=== PATIENT | female | born 1975 | race Caucasian/White ===

== ENCOUNTER 2018-07-02 05:38 | Day surgery (SDC) | payer BC ==
[~2018-07-02] VITALS: Ht 160 cm; Wt 131.5 kg
--- NOTE | ~2018-07-02 | O ---
[facility] [place] [address] OPERATIVE REPORT Name: SHANI ROMEO Room #: 150-7 [facility]#: [id number] Admission: 07/02/18 Attend Phys: Davion Teague MD Discharge: Date of : 77 Report #: [id number] THIS REPORT FOR: //name// CC: Deejay Teague DATE OF SERVICE: 07/02/2018 PREOPERATIVE DIAGNOSIS: Right peroneal tendon tendonitis. POSTOPERATIVE DIAGNOSIS: Right peroneal tendon tendonitis. PROCEDURE: Right peroneal tendon debridement. SURGEON: Davion Teague M.D. ROAD CUTTER: Caroline Davidson. ANESTHESIA: General. ESTIMATED BLOOD LOSS: Minimal. DRAINS: No drains. TOURNIQUET TIME: 30 minutes. DESCRIPTION OF PROCEDURE: The patient brought to the operating room where she was placed under general anesthesia. Once under adequate general anesthesia, her right lower extremity was prepped and draped in sterile manner. The extremity was elevated, exsanguinated, tourniquet placed 300 mmHg. A lateral incision approximately 6 cm in length was made overlying the peroneal tubercle. This was dissected down through the soft tissue to the peroneal tubercle, which was identified and subsequently the peroneus longus and brevis tendons were exposed incising the sheath overlying the tendons there. The peroneal tubercle itself was removed with a rongeur. The tendons noted significant constriction of the peroneus longus tendon; however, there were no tears identified. Similarly, the brevis tendon noted significant synovitis without a tear. Once the evaluation was complete, the tendons were freed from any surrounding constrictions. The wound was irrigated copiously and closed with 2-0 Vicryl in the subcutaneous tissues and rehana for the skin. The wounds were dressed with Xeroform, 4 x 4s, and sterile soft compressive dressing was placed. Tourniquet was let down at approximately 30 minutes. Toes were pink and warm with good [facility] [address] [place] [address] OPERATIVE REPORT Name: SHANI ROMEO Room #: 150-7 [facility] M.R.#: [id number] Admission: 07/02/18 Attend Phys: Davion Teague MD Discharge: Date of : 77 Report #: [id number] capillary refill. There were no complications from the procedure. The patient tolerated the procedure well and was taken to recovery room without incident. By: [id number] 1503 Davion Teague MD /nt
[~2018-07-02 05:38] MED LIST: ALLER-EASE180 MG PO; ASPIRIN325 PO; BENADRYL25 MG PO; CARDIZEM CD120 MG PO; CBD OIL PO; CLARINEX-D 121 EACH PO; CLARITIN10 MG PO; EPIPEN0.3 MG/0.1 IM; EPIPEN0.3 MG/0.3; IBUPROFEN 600600 M1 PO; IBUPROFEN 800800 MG PO; LORTAB 7.5/5001 TA3 PO; LOVENOX SQ; MATZIM LA240 MG PO; MEDROL DOSPAK21 TAB PO; NORCO 5-325 TA1 EACH PO; OSELB75 PO; PEPCID AC10 MG PO; PREDNISONE 5 MG5 M1 PO; PRILOSEC 10MG C10 M1 PO; PROAIR HFA8.5 GM IH; PROAIR HFA8.5 GM INH; PROTONIX40 M2 PO; SINGULAIR 10 MG10 M1 PO; SYMBICORT160 MCG/4. INH; SYNTHROID175 MCG PO; SYNTHROID50 MCG PO; ULTRAM 50MG TAB50 MG PO; UNICOMPLEX M TA1 TA1 PO; VITAMIN D 5050000 I1 PO; ZANTAC 150MG T150 MG PO; ZOFRAN ODT4 MG PO; [UNRECOGNIZED DRUG - OTHER] PO; [UNRECOGNIZED DRUG - OTHER] PO
[2018-07-02 14:04] VITALS: BP 132/71
[2018-07-02] MEDS ORDERED: PERCOCET 7.5-31 EACH PO (14:37)
[2018-07-02] MEDS ORDERED: LOVENOX40 MG/0.4 SUBQ (14:39)
[2018-07-02 15:27] VITALS: BP 132/71
== END 2018-07-02 15:50 | disposition home or self-care (01) ==
LOC: OR 05:38 → TBA 05:38 → OR 14:20
DX: M76.71 Peroneal tendinitis, right leg (principal); J45.909 Unspecified asthma, uncomplicated; Z87.19 Personal history of other diseases of the digestive system; Z98.890 Other specified postprocedural states; Z90.49 Acquired absence of other specified parts of digestive tract; Z90.710 Acquired absence of both cervix and uterus; Z98.51 Tubal ligation status; Z88.8 Allergy status to other drugs, medicaments and biological substances; Z79.899 Other long term (current) drug therapy; Z79.891 Long term (current) use of opiate analgesic; Z91.041 Radiographic dye allergy status
CPT/HCPCS: 50010; 50101; 50386; 51412; 56524; 57091; 57180; 62110; 62900; 64037; 70005

== ENCOUNTER 2018-12-17 05:19 | Day surgery (SDC) | payer BC ==
[~2018-12-17] VITALS: Ht 162.6 cm; Wt 131.5 kg
[~2018-12-17 05:19] MED LIST changes: +LOVENOX40 MG/0.4 SUBQ; +PERCOCET 7.5-31 EACH PO
[2018-12-17] MEDS ORDERED: PERCOCET 7.5-31 EACH PO (16:57)
--- NOTE | 2018-12-27 14:35 | O ---
[facility] [place] [address] OPERATIVE REPORT Name: SHANI ROMEO Rich Room #: DEP [facility]..#: [id number] Admission: 12/17/18 ������������������ Attend Phys: Davion Teague MD Discharge: 12/17/18 ������������������ Date of : 77 Report #: [id number] THIS REPORT FOR: //name// CC: Deejay Teague DATE OF SERVICE: 12/17/2018 PREOPERATIVE DIAGNOSIS: Right sural neuritis. POSTOPERATIVE DIAGNOSIS: Right sural neuritis. PROCEDURE: Right sural neurolysis with neurectomy. SURGEON: Davion Teague M.D. ANESTHESIA: General. ESTIMATED BLOOD LOSS: 5 mL. DRAINS: No drains. TOURNIQUET TIME: 30 minutes. DESCRIPTION OF PROCEDURE: The patient brought to the operating room where she was placed under general anesthesia. Once under adequate general anesthesia, her right lower extremity was prepped and draped in a sterile manner. The extremity was elevated, exsanguinated, tourniquet placed 300 mmHg. A lateral incision to the patient's previous scar was then made. This was extended proximally and distally. Proximal to the previous surgery, the sural nerve was identified. It was then subsequently followed down through the soft tissue where it did appear to then be scarred with a neuroma type appearance, fibrotic and gritty, adhered to the peroneal retinaculum. I was unable to really dissect this free of the retinaculum. Therefore, it was then subsequently excised using tenotomy scissors and followed proximally deep into the fat where it was incised and a sural neurectomy was complete. The wound was then irrigated copiously and closed with 2-0 Vicryl in subcutaneous tissues and rehana were used for the skin. The wound was dressed with Xeroform, 4 x 4s, and sterile soft compressive dressing was placed. Tourniquet was let down at approximately 30 minutes. Toes were pink and warm with good capillary refill. There were no complications from the procedure. The patient tolerated the procedure well and went to the recovery room without incident. ��������������������������������������������� <ELECTRONICALLY SIGNED> ���������������������������������������� By: Davion Teague MD ��������������������������������������������� 12/27/18 1435 1707 1731 Davion Teague MD /nt
== END 2018-12-17 18:48 | disposition home or self-care (01) ==
LOC: OR 05:19 → TBA 05:19 → OR 11:35
DX: G57.81 Other specified mononeuropathies of right lower limb (principal); J45.909 Unspecified asthma, uncomplicated; K21.9 Gastro-esophageal reflux disease without esophagitis; Z90.710 Acquired absence of both cervix and uterus; Z86.711 Personal history of pulmonary embolism; Z79.01 Long term (current) use of anticoagulants; Z87.19 Personal history of other diseases of the digestive system; Z98.890 Other specified postprocedural states; Z98.51 Tubal ligation status; Z90.49 Acquired absence of other specified parts of digestive tract; Z79.899 Other long term (current) drug therapy; Z88.8 Allergy status to other drugs, medicaments and biological substances; Z87.891 Personal history of nicotine dependence
CPT/HCPCS: 50010; 50101; 50386; 51412; 56524; 57091; 57181; 62110; 62900; 70005

== ENCOUNTER 2019-05-11 07:08 | Day surgery (SDC) | payer BC ==
[~2019-05-11] VITALS: Ht 160 cm; Wt 145.1 kg
--- NOTE | ~2019-05-11 | O ---
[facility] [place] [address] OPERATIVE REPORT Name: SHANI ROMEO Room #: 150-2 [facility].#: [id number] Admission: 05/11/19 Attend Phys: Davion Teague MD Discharge: Date of : 77 Report #: [id number] THIS REPORT FOR: //name// CC: Davion Teague [facility] DATE OF SERVICE: 05/11/2019 PREOPERATIVE DIAGNOSES: 1. Right ankle instability. 2. Right ankle synovitis. POSTOPERATIVE DIAGNOSES: 1. Right ankle instability. 2. Right ankle synovitis. PROCEDURES: 1. Right ankle arthroscopic debridement with synovectomy. 2. Right ankle Brostrom-Brito lateral ligament reconstruction with internal brace. SURGEON: Davion Teague MD PIN DRAFTING MACHINE TENDER: Caroline ____ ANESTHESIA: General. ESTIMATED BLOOD LOSS: Minimal. DRAINS: No drains. TOURNIQUET TIME: One hour. DESCRIPTION OF PROCEDURE: The patient was brought to the operating room where she was placed under general anesthesia. Once under adequate general anesthesia, her right lower extremity was prepped and draped in sterile manner. The extremity was elevated, exsanguinated, tourniquet placed 300 mmHg. The extremity had been placed into an arthroscopic thigh support prior to draping. A Guhl ankle distractor was then placed. An anteromedial and anterolateral arthroscopic portal was made in the usual fashion. Examination of the joint noted significant synovitis in syndesmotic region and synovectomy was performed there with the arthroscopic shaver. The remainder of the joint was clear. The wound was irrigated copiously and the extremity was removed from the arthroscopic thigh support. A longitudinal incision based along the anterolateral ankle was made and dissected down through the soft tissue to the inferior extensor retinaculum, which was identified and tagged for later use. [address] [address] OPERATIVE REPORT Name: SHANI ROMEO Room #: 150-2 [facility]#: [id number] Admission: 05/11/19 Attend Phys: Davion Teague MD Discharge: Date of : 77 Report #: [id number] The anterior talofibular ligament and calcaneofibular ligament were incised through the mid portions and repaired. Subsequently, a drill and tap for the internal brace was used at the footprint of the ATFL as well as at the distal fibula. The internal brace was then placed with the ankle held in neutral position. The ATFL and the CFL were then subsequently repaired in shortened position with 0 Ethibond suture. The wound was irrigated copiously and the inferior extensor retinaculum was advanced to the periosteum of the fibula with 0 Ethibond suture as well. Excellent repair was achieved in this manner. The wound was irrigated copiously and closed with 2-0 Vicryl in subcutaneous tissues and rehana for the skin. The wounds were dressed with Xeroform, 4 x 4s, and sterile soft compressive dressing with a short leg cast was placed. Tourniquet was let down at 1 hour. Toes were pink and warm with good capillary refill. There were no complications from the procedure. The patient tolerated the procedure well and went to recovery room without incident. By: [id number] [id number] Davion Teague MD /nt
[~2019-05-11 07:08] MED LIST changes: +ENOXAPARIN60 MG/0.1 SUBQ; +FLONASE 0.05%50 MCG NARES; +TOPROL XL25 MG PO; +VITAMIN D350000 UNIT PO; +[UNRECOGNIZED DRUG - CODE] TRANSDERM
[2019-05-11 08:01] VITALS: BP 142/87
[2019-05-11] MEDS ORDERED: PERCOCET 7.5-31 EAC1 PO (10:01)
[2019-05-11 10:52] VITALS: BP 142/87
--- NOTE | 2019-05-12 09:37 | EKG ---
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 05/12/19 0937 0730 Marv Calvo MD, [facility] /EPI
== END 2019-05-11 12:30 | disposition home or self-care (01) ==
LOC: OR 07:08 → TBA 07:14 → OR 10:23
DX: M25.371 Other instability, right ankle (principal); M65.871 Other synovitis and tenosynovitis, right ankle and foot; J45.909 Unspecified asthma, uncomplicated; K21.9 Gastro-esophageal reflux disease without esophagitis; Z98.890 Other specified postprocedural states; Z87.19 Personal history of other diseases of the digestive system; Z79.899 Other long term (current) drug therapy; Z90.49 Acquired absence of other specified parts of digestive tract; Z90.710 Acquired absence of both cervix and uterus; Z98.51 Tubal ligation status; Z88.8 Allergy status to other drugs, medicaments and biological substances; Z91.041 Radiographic dye allergy status
CPT/HCPCS: 50010; 50101; 50386; 51038; 51412; 51647; 52120; 55430; 56524; 56526; 56529; 57091; 57103; 57181; 62110; 62900; 64039; 64043; 70005

== ENCOUNTER → 2020-01-03 | Outpatient (CLI) | payer BC ==
[~2020-01-03] MED LIST changes: +DULOXETINE HCL30 MG PO; +FAMOTIDINE 20 M20 MG PO; +FLEXERIL PO; +PERCOCET 7.5-31 EAC1 PO; +TOPROL XL50 MG; +VITAMIN D31250 MC1 PO; +VITAMIN D3250 MCG PO; -VITAMIN D350000 UNIT PO; +XARELTO10 M1 PO
== END ==
LOC: LAB 11:52
PROVIDERS: ATTEND Student in an Organized Health Care Education/Training Program
DX: Z01.812 Encounter for preprocedural laboratory examination (principal); Z11.59 Encounter for screening for other viral diseases

== ENCOUNTER 2020-01-06 06:09 | Day surgery (SDC) | payer BC ==
[~2020-01-06] VITALS: Ht 160 cm; Wt 151.0 kg
--- NOTE | ~2020-01-06 | O ---
[facility] [place] [address] OPERATIVE REPORT Name: SHANI ROMEO Room #: 150-2 [facility]#: [id number] Admission: 01/06/20 Attend Phys: Davion Teague MD Discharge: Date of : 77 Report #: [id number] THIS REPORT FOR: cc: BEATRIZ ROBLES MD, OSSAMA MD Kneidel,Davion Duarte MD ~ CC: Davion ROBLES DATE OF SERVICE: 01/06/2020 PREOPERATIVE DIAGNOSIS: Right ankle peroneal tendinitis, possible tear. POSTOPERATIVE DIAGNOSIS: Right ankle peroneal tendinitis, possible tear. PROCEDURE: Right ankle peroneal tendon debridement with repair. SURGEON: Davion Teague MD. ANESTHESIA: General. ESTIMATED BLOOD LOSS: Minimal. DRAINS: No drains. TOURNIQUET TIME: 45 minutes. DESCRIPTION OF PROCEDURE: The patient brought to the operating room where she was placed under general anesthesia. Once under adequate general anesthesia, her right lower extremity was prepped and draped in sterile manner. The extremity was elevated, exsanguinated, tourniquet placed 300 mmHg. A lateral incision, the patient's previous scar was then made extending approximately 2 cm. This was dissected down through the soft tissue. This wound incision extended 10 cm. This was dissected down through the soft tissue to the peroneal tendon sheath, which was then incised exposing the peroneus longus and brevis tendons. Peroneus longus tendon appeared to be clear and clean with no lesions noted. The peroneus brevis tendon; however, did have a low lying muscle belly, which was debrided off of the tendon with a partial tear in the posterior aspect of the tendon centrally. This was debrided as well with tenotomy scissors. The tendon was then tubularized with 3-0 Prolene suture in a running stitch manner. Once complete, the wound was irrigated copiously and closed with 0 Ethibond suture and the retinacular tissue with 2-0 Vicryl in subcutaneous tissues and rehana for the skin. The wounds were dressed with Xeroform, 4 x 4s, and sterile soft compressive dressing was placed. Tourniquet was let down at 45 minutes. Toes were pink and warm with good capillary refill. There were no [facility] [address] [place] [address] OPERATIVE REPORT Name: OUSMANESHANI Rich Room #: 150-2 [facility]#: [id number] Admission: 01/06/20 Attend Phys: Davion Teague MD Discharge: Date of : 77 Report #: [id number] complications from the procedure. The patient tolerated the procedure well and went to the recovery room without incident. By: 0913 0923 Davion Teague MD /nt
[2020-01-06 06:48] LABS: HEMATOCRIT 36.2 % (37.0-47.0); HEMOGLOBIN 12.3 gm/dL (12.0-15.0); MCHC 34.1 g/dL (28.0-37.0); MCV 91.1 fL (80.0-100.0); RBC 3.97 mil/uL (4.20-5.00); RDW 15.5 % (10.5-14.5); WBC 12.1 thou/uL (4.0-11.0)
[2020-01-06 07:37] VITALS: BP 136/84
[2020-01-06] MEDS ORDERED: PERCOCET 7.5-31 EAC1 PO (08:27)
[2020-01-06 08:47] VITALS: BP 136/84
[2020-01-06 08:50] VITALS: BP 136/84
== END 2020-01-06 10:15 | disposition home or self-care (01) ==
LOC: OR 06:09 → TBA 06:10 → OR 10:03
PROVIDERS: ATTEND Orthopaedic Surgery Foot and Ankle Surgery
DX: M76.71 Peroneal tendinitis, right leg (principal); S86.311A Strain of muscle(s) and tendon(s) of peroneal muscle group at lower leg level, right leg, initial encounter; J45.909 Unspecified asthma, uncomplicated; K21.9 Gastro-esophageal reflux disease without esophagitis; Z98.890 Other specified postprocedural states; Z79.899 Other long term (current) drug therapy; Z90.49 Acquired absence of other specified parts of digestive tract; Z90.710 Acquired absence of both cervix and uterus; Z98.51 Tubal ligation status; Z88.8 Allergy status to other drugs, medicaments and biological substances; X58.XXXA Exposure to other specified factors, initial encounter; Y93.89 Activity, other specified; Y92.89 Other specified places as the place of occurrence of the external cause; Y99.8 Other external cause status
CPT/HCPCS: 50010; 50101; 50386; 51412; 56524; 56526; 56529; 57091; 57180; 62110; 62900; 70005